=== PATIENT | female | born 1965 | race Caucasian/White ===

== ENCOUNTER 2021-09-09 19:24 | Emergency (ER) | payer BC ==
[2021-09-09] MEDS ORDERED: ONDANSETRON 4 MG/2 ML VIAL IVP STA (20:26)
[2021-09-09] MEDS ORDERED: KETOROLAC 15 MG/ML 1 ML VIAL IVP STA (20:26)
[2021-09-09] MEDS ORDERED: SODIUM CHLORIDE 0.9% 1,000 ML IV STA (20:26)
[2021-09-09] MEDS ORDERED: ACETAMINOPHEN TAB 500 MG TAB PO STA (20:26)
[2021-09-09] MEDS ORDERED: DEXAMETHASONE SOD PHOSPHATE 10 MG/ML 1 ML VIAL IV STA (20:42)
[2021-09-09] MEDS ORDERED: dexAMETHasone ORAL SOLUTION 4 MG/ML VIAL PO STA (20:42)
--- NOTE | 2021-09-09 21:05 | ED ---
General Adult HPI - General Chief complaint: Nausea/Vomiting/Diarrhea Stated complaint: Vomiting,Sore throat Time Seen by Provider: 09/09/21 19:46 Source: patient Mode of arrival: ambulatory Limitations: no limitations - History of Present Illness Initial comments: 56-year-old female presents to the emergency room for chief complaint of sore throat. Patient states she has had a sore throat since last night. States she also has a fever. Patient states it is painful to swallow. Patient states the stretcher ER she has been nauseous and vomiting and unable to keep anything down. Patient denies cough congestion or shortness of breath.Patient has no other complaints at this time including shortness of breath, chest pain, abdominal pain, nausea or vomiting, headache, or visual changes. - Related Data Previous Rx's Medication Instructions Recorded Amoxicillin 500 mg PO Q12HR #20 cap 09/09/21 Allergies Allergy/AdvReac Type Severity Reaction Status Date / Time No Known Allergies Allergy Verified 09/09/21 19:31 Review of Systems ROS Statement: Those systems with pertinent positive or pertinent negative responses have been documented in the HPI. ROS Other: All systems not noted in ROS Statement are negative. Past Medical History Past Medical History: No Reported History History of Any Multi-Drug Resistant Organisms: None Reported Past Surgical History: No Surgical Hx Reported Smoking Status: Never smoker Past Alcohol Use History: None Reported Past Drug Use History: None Reported General Exam Limitations: no limitations General appearance: alert, in no apparent distress Head exam: Present: atraumatic Eye exam: Present: normal appearance, PERRL, EOMI. Absent: scleral icterus, conjunctival injection ENT exam: Present: normal exam, mucous membranes moist, TM's normal bilaterally, normal external ear exam. Absent: normal oropharynx (Slight uvulitis. No peritonsillar abscess. Uvula midline. Tonsillar pillars are symmetric.) Neck exam: Present: normal inspection, full ROM. Absent: tenderness Respiratory exam: Present: normal lung sounds bilaterally. Absent: respiratory distress, wheezes Cardiovascular Exam: Present: regular rate, normal rhythm, normal heart sounds GI/Abdominal exam: Present: soft, normal bowel sounds. Absent: distended, tenderness Course Vital Signs 09/09/21 09/09/21 19:29 21:24 Temperature 102.7 F H 100.2 F H Pulse Rate 108 H 103 H Respiratory 16 18 Rate Blood Pressure 154/85 120/82 O2 Sat by Pulse 97 98 Oximetry Medical Decision Making - Medical Decision Making She presents initially with a 1.7 temperature and reflexive tachycardia. Was given Toradol and Tylenol. Patient able to swallow liquids, was nervous about swallowing the Tylenol so we did liquid. Physical exam did reveal maybe some uvulitis however no peritonsillar abscess. CBC does show mild acidosis. CMP unremarkable. A heterophile and strep were negative. However given patient's fever and sore throat we will treat her with amoxicillin until culture results. Patient will follow-up with her doctor. She will return for any worsening symptoms. - Lab Data Result diagrams: 09/09/21 20:52 09/09/21 20:52 Lab Results 09/09/21 09/09/21 09/09/21 Range/Units 20:52 20:52 20:52 WBC 15.7 H (3.8-10.6) k/uL RBC 4.35 (3.80-5.40) m/uL Hgb 13.6 (11.4-16.0) gm/dL Hct 39.7 (34.0-46.0) % MCV 91.2 (80.0-100.0) fL MCH 31.3 (25.0-35.0) pg MCHC 34.3 (31.0-37.0) g/dL RDW 12.8 (11.5-15.5) % Plt Count 324 (150-450) k/uL MPV 8.1 Neutrophils % 90 % Lymphocytes % 5 % Monocytes % 4 % Eosinophils % 0 % Basophils % 0 % Neutrophils # 14.1 H (1.3-7.7) k/uL Lymphocytes # 0.8 L (1.0-4.8) k/uL Monocytes # 0.6 (0-1.0) k/uL Eosinophils # 0.0 (0-0.7) k/uL Basophils # 0.0 (0-0.2) k/uL Sodium 137 (137-145) mmol/L Potassium 3.6 (3.5-5.1) mmol/L Chloride 104 (98-107) mmol/L Carbon Dioxide 25 (22-30) mmol/L Anion Gap 8 mmol/L BUN 14 (7-17) mg/dL Creatinine 0.75 (0.52-1.04) mg/dL Est GFR (CKD-EPI)AfAm >90 (>60 ml/min/1.73 sqM) Est GFR (CKD-EPI)NonAf >90 (>60 ml/min/1.73 sqM) Glucose 115 H (74-99) mg/dL Calcium 9.6 (8.4-10.2) mg/dL Total Bilirubin 1.0 (0.2-1.3) mg/dL AST 31 (14-36) U/L ALT 14 (4-34) U/L Alkaline Phosphatase 123 (38-126) U/L Total Protein 8.0 (6.3-8.2) g/dL Albumin 4.3 (3.5-5.0) g/dL Heterophile Antibody Negative (Negative) Group A Strep Rapid (Negative) 09/09/21 Range/Units 20:52 WBC (3.8-10.6) k/uL RBC (3.80-5.40) m/uL Hgb (11.4-16.0) gm/dL Hct (34.0-46.0) % MCV (80.0-100.0) fL MCH (25.0-35.0) pg MCHC (31.0-37.0) g/dL RDW (11.5-15.5) % Plt Count (150-450) k/uL MPV Neutrophils % % Lymphocytes % % Monocytes % % Eosinophils % % Basophils % % Neutrophils # (1.3-7.7) k/uL Lymphocytes # (1.0-4.8) k/uL Monocytes # (0-1.0) k/uL Eosinophils # (0-0.7) k/uL Basophils # (0-0.2) k/uL Sodium (137-145) mmol/L Potassium (3.5-5.1) mmol/L Chloride (98-107) mmol/L Carbon Dioxide (22-30) mmol/L Anion Gap mmol/L BUN (7-17) mg/dL Creatinine (0.52-1.04) mg/dL Est GFR (CKD-EPI)AfAm (>60 ml/min/1.73 sqM) Est GFR (CKD-EPI)NonAf (>60 ml/min/1.73 sqM) Glucose (74-99) mg/dL Calcium (8.4-10.2) mg/dL Total Bilirubin (0.2-1.3) mg/dL AST (14-36) U/L ALT (4-34) U/L Alkaline Phosphatase (38-126) U/L Total Protein (6.3-8.2) g/dL Albumin (3.5-5.0) g/dL Heterophile Antibody (Negative) Group A Strep Rapid Negative (Negative) Disposition Clinical Impression: Uvulitis, Pharyngitis Disposition: HOME SELF-CARE Condition: Good Prescriptions: Amoxicillin 500 mg PO Q12HR #20 cap Is patient prescribed a controlled substance at d/c from ED?: No Referrals: Bishop Markham MD [Primary Care Provider] - 1-2 days Time of Disposition: 21:56
[2021-09-09] MEDS ORDERED: ACETAMINOPHEN ORAL SUSP 160 MG/5 ML CUP PO STA (21:08)
[2021-09-09 21:14] LABS: Basophils % (A) 0 %; Eosinophils % (A) 0 %; HCT 39.7 % (34.0-46.0); HGB 13.6 gm/dL (11.4-16.0); Lymphocytes # (A) 0.8 k/uL (1.0-4.8); Lymphocytes % (A) 5 %; MCH 31.3 pg (25.0-35.0); MCHC 34.3 g/dL (31.0-37.0); MCV 91.2 fL (80.0-100.0); Mean Platelet Volume 8.1; Monocytes # (A) 0.6 k/uL (0-1.0); Monocytes % (A) 4 %; Neutrophils # (A) 14.1 k/uL (1.3-7.7); Neutrophils % (A) 90 %; Platelet Count 324 k/uL (150-450); RBC 4.35 m/uL (3.80-5.40); RDW 12.8 % (11.5-15.5); WBC 15.7 k/uL (3.8-10.6)
[2021-09-09 21:24] VITALS: BP 120/82; PULSE 103; RESP 18; TEMP 100.2
[2021-09-09 21:24] LABS: ALT 14 U/L (4-34); AST 31 U/L (14-36); African American GFR (CKD) >90 (>60 ml/min/1.73 sqM); Albumin 4.3 g/dL (3.5-5.0); Alkaline Phosphatase 123 U/L (38-126); Anion Gap 8 mmol/L; Blood Urea Nitrogen 14 mg/dL (7-17); Calcium 9.6 mg/dL (8.4-10.2); Carbon Dioxide 25 mmol/L (22-30); Chloride 104 mmol/L (98-107); Glucose 115 mg/dL (74-99); Non-African American GFR(CKD) >90 (>60 ml/min/1.73 sqM); Potassium 3.6 mmol/L (3.5-5.1); Sodium 137 mmol/L (137-145)
[2021-09-09] MEDS ORDERED: cefTRIAXone IN SWFI 1,000 MG/10 ML SYRINGE IVP STA (21:57)
== END 2021-09-09 22:18 | disposition home or self-care (01) ==
LOC: EC 19:24
DX: J02.9 Acute pharyngitis, unspecified (principal); K12.2 Cellulitis and abscess of mouth; R11.2 Nausea with vomiting, unspecified; R19.7 Diarrhea, unspecified; Z20.822 Contact with and (suspected) exposure to COVID-19
CPT/HCPCS: 36415; 80053; 85025; 86308; 87081; 87430; 87635; 99284; 96374; 96375; 96361; J1100; J2405; J0696; J1885

== ENCOUNTER 2022-04-11 23:44 | Emergency (ER) | payer BC ==
[2022-04-11 23:56] VITALS: RESP 18; TEMP 98.2
[2022-04-12] MEDS ORDERED: LIDOCAINE 1% INJ 10MG/ML (5 ML VIAL-PF) SQ ONE (00:34)
--- NOTE | 2022-04-12 00:34 | ED ---
Wound/Laceration HPI - General Chief Complaint: Wound/Laceration Stated Complaint: Fall, lip laceration Time Seen by Provider: 04/12/22 00:20 Source: patient, RN notes reviewed, old records reviewed Mode of arrival: ambulatory Limitations: no limitations - History of Present Illness Initial Comments: This is a pleasant 56-year-old female that tripped at home hitting her lower lip on the headboard sustaining a laceration through her lower lip less than an hour prior to arrival. Patient denies any loss of consciousness. She denies any other injury. -: hour(s) (1) Location: other (lower lip) Place: home Context: accidental Associated Symptoms: none - Related Data Previous Rx's Medication Instructions Recorded Amoxicillin 500 mg PO Q12HR #20 cap 09/09/21 Ondansetron [Zofran ODT] 4 mg PO Q8HR PRN #15 tab 09/09/21 Cephalexin [Keflex] 500 mg PO Q6HR 2 Days #8 cap 04/12/22 Allergies Allergy/AdvReac Type Severity Reaction Status Date / Time No Known Allergies Allergy Verified 09/09/21 19:31 Review of Systems ROS Statement: Those systems with pertinent positive or pertinent negative responses have been documented in the HPI. ROS Other: All systems not noted in ROS Statement are negative. Past Medical History Past Medical History: No Reported History History of Any Multi-Drug Resistant Organisms: None Reported Past Surgical History: No Surgical Hx Reported Past Psychological History: No Psychological Hx Reported Smoking Status: Never smoker Past Alcohol Use History: None Reported Past Drug Use History: None Reported General Exam Limitations: no limitations General appearance: alert, in no apparent distress Head exam: Present: normocephalic, normal inspection Eye exam: Present: normal appearance. Absent: scleral icterus, conjunctival injection ENT exam: Present: mucous membranes moist, other (Approximately 1 cm gaping laceration lower lip) Neck exam: Present: normal inspection, full ROM. Absent: tenderness, meningismus Respiratory exam: Absent: respiratory distress, accessory muscle use Cardiovascular Exam: Present: regular rate Neurological exam: Present: alert, oriented X3 Psychiatric exam: Present: normal affect, normal mood Skin exam: Present: warm, dry, normal color Course Vital Signs 04/11/22 04/12/22 23:54 01:34 Temperature 98.2 F Pulse Rate 82 85 Respiratory 18 18 Rate Blood Pressure 164/87 143/89 O2 Sat by Pulse 98 97 Oximetry Procedures - Laceration Laceration #1 Consent Obtained: verbal consent Indication: laceration Site: lip Size (cm): 1 (triangular gaping) Description: irregular (1 ) Depth: simple, single layer Anesthetic Used: lidocaine 1% Anesthesia Technique: nerve block Type of Sutures: nylon Size of Sutures: 6-0 Number of Sutures: 6 Technique: simple, interrupted Patient Tolerated Procedure: well Medical Decision Making - Medical Decision Making Patient presents with lower lip laceration after falling into her headboard at h ome. She states this was an accidental injury. She does feel safe at home, this is not a result of an assault. Patient denies any other injuries. No evidence of trismus, no loose teeth, mandible intact, no tongue injury. Mental nerve block performed and wound was closed with 6 sutures. Patient's tetanus shot was updated at this visit. Case discussed with Dr. Vega who is at bedside. Antibiotics were prescribed prophylactically . She was instructed to follow up with her primary care doctor for suture removal in 5 days. Disposition Clinical Impression: Lip laceration Disposition: HOME SELF-CARE Condition: Good Instructions (If sedation given, give patient instructions): Care For Your Stitches (ED), Laceration (ED) Additional Instructions: Keep the wound clean. Avoid salt and citrus as it may sting. Follow-up with your primary care doctor in 5 days for suture removal. Prescriptions: Cephalexin [Keflex] 500 mg PO Q6HR 2 Days #8 cap Is patient prescribed a controlled substance at d/c from ED?: No Referrals: Bishop Markham MD [Primary Care Provider] - 1-2 days Time of Disposition: 01:14
[2022-04-12] MEDS ORDERED: DIPH,PERTUS(ACELL)TETVAC-LF 0.5 ML VIAL IM ONE (00:48)
[2022-04-12] MEDS ORDERED: CEPHALEXIN 500 MG CAP PO STA (01:18)
[2022-04-12 01:35] VITALS: BP 143/89; PULSE 85
== END 2022-04-12 01:36 | disposition home or self-care (01) ==
LOC: EC 23:44
DX: S01.511A Laceration without foreign body of lip, initial encounter (principal); W01.0XXA Fall on same level from slipping, tripping and stumbling without subsequent striking against object, initial encounter; Y92.009 Unspecified place in unspecified non-institutional (private) residence as the place of occurrence of the external cause
CPT/HCPCS: 12011; 90471; 90715; 99282